=== PATIENT | male | born 1985 | race Caucasian/White ===

== ENCOUNTER 2021-08-03 14:30 | Emergency (ER) | payer OTHER ==
[~2021-08-03] VITALS: Ht 177.8 cm; Wt 88.5 kg
== END 2021-08-03 19:10 | disposition home or self-care (01) ==
LOC: FER 14:30
DX: U07.1 COVID-19 (principal); E66.9 Obesity, unspecified; Z23 Encounter for immunization
CPT/HCPCS: M0245; Q0245

== ENCOUNTER 2022-03-05 07:15 | Emergency (ER) | payer OTHER ==
[2022-03-05 08:15] LABS: BASOPHIL 0.5 % (0-2); BUN/CREAT RATIO (CALC) 16.5 RATIO; CREATININE 0.91 mg/dL (0.67-1.17); EOSINOPHIL 2.1 % (0-5); HCT 46.8 % (42.0-52.0); HGB 15.8 g/dl (13.2-18.0); LYMPHOCYTE 32.2 % (15-48); MCH 29.8 pg (25.0-31.0); MCHC 33.8 g/dL (32.0-36.0); MCV 88.1 fL (78.0-100.0); MONOCYTE 9.7 % (0-12); MPV 9.7 fL (6.0-9.5); NEUTROPHIL 54.9 % (41-80); NRBC 0; PLT 329 K/uL (150-400); POTASSIUM 3.9 mmol/L (3.5-5.1); RBC 5.31 M/uL (4.70-6.00); RDW 12.3 % (11.5-14.0); WBC 6.3 K/uL (4.0-10.5)
[2022-03-05] MEDS ORDERED: NAPROXEN500 MG PO (08:47)
== END 2022-03-05 09:10 | disposition home or self-care (01) ==
LOC: FER 07:15
PROVIDERS: Emergency Medicine
DX: R07.89 Other chest pain (principal)
CPT/HCPCS: 36415; 71046; 80048; 84484; 85025; 85379; 93005